=== PATIENT | female | born 1930 ===

== ENCOUNTER 2019-05-21 20:32 | Inpatient (IN) | payer MEDICARE, OTHER, MEDICAID ==
[~2019-05-21] VITALS: Ht 162.6 cm; Wt 93.3 kg
--- NOTE | 2019-05-21 20:40 | NUR ---
PT FENRY OSEI TRANSFER FROM [place] WHERE SHE WAS SEEN FOR ESOPHAGEAL DISORDER. PT WAS TRANSFERRED FOR HIGHER LEVEL OF CARE AND GI CONSULT AND POSSIBLE ONCOLOGIC CONSULT. UPON ARRIVAL TO [facility] ED, PT VSS. PER EMS, PT RECEIVED 2 MG IV ATIVAN PRIOR TO TRANSPORT. PT AWAKES TO PAINFUL STIMULI. PT AAO X O DUE TO SEDATION. PT PLACED ON O2 TO MAINTAIN SATURATION ABOVE 92%. 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 VSS AT THIS TIME. PT HAD INCONTINENT EPISODE OF URINE EN ROUTE. PT CHANGED INTO DRY GOWN AND CLOTHES UPON ARRIVAL. EKG DONE AT BS. CALL LIGHT WITHIN REACH. AWAITING PROVIDER AT THIS TIME.
--- NOTE | 2019-05-21 21:19 | NUR ---
DR. MENJIVAR AT BS AT THIS TIME.
[2019-05-21 21:54] LABS: BASOPHILS # (AUTO) 0.02 x10^3/uL (0-0.1); BASOPHILS % (AUTO) 0 % (0-1); EOSINOPHILS # (AUTO) 0.09 x10^3/uL (0-0.4); EOSINOPHILS % (AUTO) 1 % (1-7); LYMPHOCYTES # (AUTO) 1.03 x10^3/uL (1-3.4); LYMPHOCYTES % (AUTO) 15 % (22-44); MD NO; MEAN CORPUSCULAR HEMOGLOBIN 30.4 pg (27.0-34.8); MEAN CORPUSCULAR HGB CONC 32.4 g/dL (32.4-35.8); MEAN CORPUSCULAR VOLUME 93.8 fL (80-100); MEAN PLATELET VOLUME 8.6 fL (7.4-10.4); MONOCYTES # (AUTO) 0.42 x10^3/uL (0.2-0.8); MONOCYTES % (AUTO) 6 % (2-9); NEUTROPHILS # (AUTO) 5.38 x10^3/uL (1.8-6.8); NEUTROPHILS % (AUTO) 78 % (42-75); PLATELET COUNT 188 x10^3/uL (130-400); RED BLOOD COUNT 5.02 x10^6/uL (3.82-5.3); RED CELL DISTRIBUTION WIDTH 14.7 % (9.6-15.2)
[2019-05-21 22:04] LABS: ALANINE AMINOTRANSFERASE 18 U/L (12-78); ALBUMIN 3.6 g/dL (3.4-5.0); ANION GAP 6 mmol/L (5-15); CALCIUM 8.8 mg/dL (8.5-10.1); CHLORIDE 106 mmol/L (98-107); CREATININE 1.11 mg/dL (0.55-1.02)
[2019-05-21 22:08] LABS: BILIRUBIN,TOTAL 0.4 mg/dL (0.2-1.0); TOTAL PROTEIN 6.9 g/dL (6.4-8.2); TROPONIN I < 0.015 ng/mL (0.000-0.045)
[2019-05-21 22:18] LABS: ALKALINE PHOSPHATASE 67 U/L (45-117)
[2019-05-21] MEDS ORDERED: SODIUM CHLORIDE 0.9% 1,000 ML IV SCH (23:03)
[2019-05-21] MEDS ORDERED: POLYETHYLENE GLYCOL 17 GM PACKET PO PRN (23:30)
[2019-05-21] MEDS ORDERED: BISACODYL 10 MG SUPP PR PRN (23:30)
[2019-05-21] MEDS ORDERED: ACETAMINOPHEN 325 MG TABLET PO PRN (23:30)
[2019-05-21] MEDS ORDERED: hydrALAzine 20 MG/ML, 1ML IVPush PRN (23:30)
--- NOTE | 2019-05-21 23:34 | NUR ---
REPORT OF PT TO ABIGAIL BANERJEE. ALL QUESTIONS ANSWERED. PT TRANSFERRED TO FLOOR AT THIS TIME BY SHAREHOLDER.
[2019-05-21 23:49] VITALS: BP 139/81
[2019-05-22 00:52] VITALS: BP 139/81
[2019-05-22 01:08] VITALS: BP 127/76
[2019-05-22 05:14] LABS: BASOPHILS # (AUTO) 0.01 x10^3/uL (0-0.1); BASOPHILS % (AUTO) 0 % (0-1); EOSINOPHILS # (AUTO) 0.04 x10^3/uL (0-0.4); EOSINOPHILS % (AUTO) 1 % (1-7); LYMPHOCYTES # (AUTO) 1.56 x10^3/uL (1-3.4); LYMPHOCYTES % (AUTO) 28 % (22-44); MD NO; MEAN CORPUSCULAR HEMOGLOBIN 30.5 pg (27.0-34.8); MEAN CORPUSCULAR HGB CONC 32.5 g/dL (32.4-35.8); MEAN CORPUSCULAR VOLUME 93.9 fL (80-100); MEAN PLATELET VOLUME 9.2 fL (7.4-10.4); MONOCYTES # (AUTO) 0.41 x10^3/uL (0.2-0.8); MONOCYTES % (AUTO) 8 % (2-9); NEUTROPHILS # (AUTO) 3.49 x10^3/uL (1.8-6.8); NEUTROPHILS % (AUTO) 63 % (42-75); PLATELET COUNT 184 x10^3/uL (130-400); RED BLOOD COUNT 4.66 x10^6/uL (3.82-5.3); RED CELL DISTRIBUTION WIDTH 14.4 % (9.6-15.2)
[2019-05-22 05:24] LABS: CALCIUM 8.7 mg/dL (8.5-10.1); CHLORIDE 107 mmol/L (98-107)
[2019-05-22 05:29] LABS: ALANINE AMINOTRANSFERASE 16 U/L (12-78); ALBUMIN 3.1 g/dL (3.4-5.0); ALKALINE PHOSPHATASE 56 U/L (45-117); ANION GAP 7 mmol/L (5-15); BILIRUBIN,TOTAL 0.4 mg/dL (0.2-1.0); CREATININE 0.83 mg/dL (0.55-1.02); TOTAL PROTEIN 6.1 g/dL (6.4-8.2)
[2019-05-22] MEDS ORDERED: HEPARIN 5,000 UNITS/ML, 1ML SQ SCH (07:00)
[2019-05-22 07:23] VITALS: BP 145/75
[2019-05-22 13:24] VITALS: BP 140/79
[2019-05-22 18:49] VITALS: BP 142/78
[2019-05-22] MEDS: SODIUM CHLORIDE 0.9% 1,000 ML IV SCH (22:18)
[2019-05-22] MEDS: ACETAMINOPHEN 325 MG TABLET PO PRN (22:18)
[2019-05-23 00:56] VITALS: BP 137/72
[2019-05-23] MEDS ORDERED: ASPI-682 PO (02:05)
[2019-05-23] MEDS ORDERED: ALEN70TA3 PO (02:05)
[2019-05-23] MEDS ORDERED: CLON0.1T2 PO (02:08)
[2019-05-23] MEDS ORDERED: MULT1TAB9 PO (02:08)
[2019-05-23] MEDS ORDERED: CYCL5TAB PO (02:12)
[2019-05-23] MEDS ORDERED: FAMO-79 PO (02:12)
[2019-05-23] MEDS ORDERED: DOCU-131 PO (02:12)
[2019-05-23] MEDS ORDERED: FENT1PAT77 TP (02:15)
[2019-05-23] MEDS ORDERED: GABA-826 PO (02:17)
[2019-05-23] MEDS ORDERED: PARO10TA56 PO (02:19)
[2019-05-23] MEDS ORDERED: OXYC-302 PO (02:19)
[2019-05-23] MEDS ORDERED: TRAM50TA2 PO (02:21)
[2019-05-23] MEDS ORDERED: CHOL200059 PO (02:21)
[2019-05-23] MEDS ORDERED: ONDA4TAB7 PO (02:22)
[2019-05-23 07:10] VITALS: BP 105/80
[2019-05-23] MEDS ORDERED: PROPOFOL 10 MG/ML, 20ML ONE (07:53)
[2019-05-23] MEDS ORDERED: ONDANSETRON 2MG/ML, 2ML IV PRN (08:00)
[2019-05-23] MEDS ORDERED: LABETALOL 5MG/ML, 20ML IV PRN (08:00)
[2019-05-23] MEDS ORDERED: ACETAMINOPHEN 325 MG TABLET PO PRN (08:00)
[2019-05-23] MEDS ORDERED: hydrALAzine 20 MG/ML, 1ML IV PRN (08:00)
[2019-05-23] MEDS ORDERED: FENTANYL PF 100 MCG/2ML IV PRN (08:00)
[2019-05-23] MEDS: OMEPRAZOLE 20 MG CAPSULE.DR PO SCH (08:30)
[2019-05-23] MEDS ORDERED: hydrALAzine 20 MG/ML, 1ML ONE (08:44)
[2019-05-23] MEDS: ONDANSETRON 2MG/ML, 2ML IVPush PRN (09:14)
[2019-05-23] MEDS ORDERED: FENTANYL PF 100 MCG/2ML ONE (11:58)
[2019-05-23] MEDS ORDERED: NALOXONE 1 MG/ML, 2ML ONE (11:58)
[2019-05-23] MEDS ORDERED: MIDAZOLAM 1 MG/ML, 5ML ONE (11:58)
[2019-05-23] MEDS ORDERED: FLUMAZENIL 0.1 MG/1 ML, 5ML ONE (11:58)
[2019-05-23 13:20] VITALS: BP 126/75
[2019-05-23] MEDS: SUCRALFATE 1 GM/10 ML UDC PO SCH ×3 (15:09→19:19)
[2019-05-23] MEDS: ACETAMINOPHEN 325 MG TABLET PO PRN (15:09)
[2019-05-23] MEDS: SODIUM CHLORIDE 0.9% 1,000 ML IV SCH (18:33)
[2019-05-23 19:15] VITALS: BP 126/73
[2019-05-23] MEDS: PAROXETINE 10 MG TABLET PO SCH (19:58)
[2019-05-23] MEDS: GABAPENTIN 100 MG CAPSULE PO SCH (19:58)
[2019-05-23] MEDS: CYCLOBENZAPRINE 10 MG TABLET PO SCH (19:58)
[2019-05-23] MEDS: METHYL SALICYLATE/MENTHOL CRM 85GM TP PRN (22:10)
[2019-05-23] MEDS: KETOROLAC 30 MG/1 ML IVPush PRN (22:10)
[2019-05-24 00:37] VITALS: BP 116/65
[2019-05-24] MEDS: ONDANSETRON 2MG/ML, 2ML IVPush PRN (03:38)
[2019-05-24] MEDS: OMEPRAZOLE 20 MG CAPSULE.DR PO SCH (05:36)
[2019-05-24] MEDS: SUCRALFATE 1 GM/10 ML UDC PO SCH ×4 (07:44→20:07)
[2019-05-24] MEDS: HEPARIN 5,000 UNITS/ML, 1ML SQ SCH ×2 (07:45→16:03)
[2019-05-24] MEDS: SODIUM CHLORIDE 0.9% 1,000 ML IV SCH (07:46)
[2019-05-24 08:25] VITALS: BP 126/71
[2019-05-24 09:14] LABS: INTERNATIONAL NORMALIZED RATIO 1.02 (0.93-1.1); PROTHROMBIN TIME 10.7 Seconds (9.6-11.5)
[2019-05-24 13:40] VITALS: BP 101/66
[2019-05-24] MEDS: KETOROLAC 30 MG/1 ML IVPush PRN (16:02)
[2019-05-24 20:04] VITALS: BP 127/66
[2019-05-24] MEDS: CYCLOBENZAPRINE 10 MG TABLET PO SCH (20:07)
[2019-05-24] MEDS: GABAPENTIN 100 MG CAPSULE PO SCH (20:07)
[2019-05-24] MEDS: PAROXETINE 10 MG TABLET PO SCH (20:07)
[2019-05-24] MEDS: METHYL SALICYLATE/MENTHOL CRM 85GM TP PRN (20:08)
[2019-05-25 03:00] VITALS: BP 149/81
[2019-05-25] MEDS: HEPARIN 5,000 UNITS/ML, 1ML SQ SCH ×4 (03:21→22:05)
[2019-05-25] MEDS: OMEPRAZOLE 20 MG CAPSULE.DR PO SCH (06:12)
[2019-05-25 07:36] VITALS: BP 162/92
[2019-05-25] MEDS: SUCRALFATE 1 GM/10 ML UDC PO SCH ×4 (08:33→21:58)
[2019-05-25] MEDS: SODIUM CHLORIDE 0.9% 1,000 ML IV SCH (08:33)
[2019-05-25 13:11] VITALS: BP 147/70
[2019-05-25] MEDS ORDERED: NALOXONE 1 MG/ML, 2ML ONE (14:38)
[2019-05-25] MEDS ORDERED: MIDAZOLAM 1 MG/ML, 5ML ONE ×2 (14:38)
[2019-05-25] MEDS ORDERED: FENTANYL PF 100 MCG/2ML ONE (14:38)
[2019-05-25] MEDS ORDERED: FLUMAZENIL 0.1 MG/1 ML, 5ML ONE (14:38)
[2019-05-25 18:39] VITALS: BP 141/79
[2019-05-25] MEDS: GABAPENTIN 100 MG CAPSULE PO SCH (21:57)
[2019-05-25] MEDS: CYCLOBENZAPRINE 10 MG TABLET PO SCH (21:57)
[2019-05-25] MEDS: PAROXETINE 10 MG TABLET PO SCH (21:58)
[2019-05-25] MEDS: SENNA/DOCUSATE TABLET PO SCH (22:02)
[2019-05-26 00:14] VITALS: BP 152/84
[2019-05-26] MEDS: SODIUM CHLORIDE 0.9% 1,000 ML IV SCH ×2 (04:49→17:45)
[2019-05-26] MEDS: OMEPRAZOLE 20 MG CAPSULE.DR PO SCH (06:34)
[2019-05-26] MEDS: SUCRALFATE 1 GM/10 ML UDC PO SCH ×4 (06:34→20:37)
[2019-05-26 07:02] VITALS: BP 171/90
[2019-05-26] MEDS: HEPARIN 5,000 UNITS/ML, 1ML SQ SCH ×3 (07:38→23:26)
[2019-05-26] MEDS: LACTOBACILLUS CHEW TABLET PO SCH ×3 (07:38→20:37)
[2019-05-26] MEDS: CARVEDILOL 3.125 MG TABLET PO SCH ×2 (10:31→17:45)
[2019-05-26 11:12] VITALS: BP 150/77
[2019-05-26 13:35] VITALS: BP 117/73
[2019-05-26 18:54] VITALS: BP 132/75
[2019-05-26] MEDS: SENNA/DOCUSATE TABLET PO SCH (20:37)
[2019-05-26] MEDS: GABAPENTIN 100 MG CAPSULE PO SCH (20:37)
[2019-05-26] MEDS: CYCLOBENZAPRINE 10 MG TABLET PO SCH (20:37)
[2019-05-26] MEDS: PAROXETINE 10 MG TABLET PO SCH (20:37)
[2019-05-26] MEDS: KETOROLAC 30 MG/1 ML IVPush PRN (22:05)
[2019-05-27 02:00] VITALS: BP 140/70
[2019-05-27] MEDS: SODIUM CHLORIDE 0.9% 1,000 ML IV SCH ×2 (02:30→20:44)
[2019-05-27] MEDS: ACETAMINOPHEN 325 MG TABLET PO PRN (02:35)
[2019-05-27] MEDS: METHYL SALICYLATE/MENTHOL CRM 85GM TP PRN (02:35)
[2019-05-27] MEDS: SUCRALFATE 1 GM/10 ML UDC PO SCH ×4 (06:19→19:37)
[2019-05-27] MEDS: OMEPRAZOLE 20 MG CAPSULE.DR PO SCH (06:20)
[2019-05-27] MEDS: CARVEDILOL 3.125 MG TABLET PO SCH ×2 (06:25→16:34)
[2019-05-27 07:21] VITALS: BP 137/80
[2019-05-27] MEDS: LACTOBACILLUS CHEW TABLET PO SCH ×3 (08:07→19:37)
[2019-05-27] MEDS: HEPARIN 5,000 UNITS/ML, 1ML SQ SCH ×2 (08:07→16:30)
[2019-05-27 13:23] VITALS: BP 124/76
[2019-05-27 19:12] VITALS: BP 170/82
[2019-05-27] MEDS: CYCLOBENZAPRINE 10 MG TABLET PO SCH (19:37)
[2019-05-27] MEDS: PAROXETINE 10 MG TABLET PO SCH (19:37)
[2019-05-27] MEDS: SENNA/DOCUSATE TABLET PO SCH (19:37)
[2019-05-27] MEDS: GABAPENTIN 100 MG CAPSULE PO SCH (19:38)
[2019-05-27 19:43] VITALS: BP 160/84
[2019-05-28] MEDS: HEPARIN 5,000 UNITS/ML, 1ML SQ SCH ×3 (00:40→16:36)
[2019-05-28 00:52] VITALS: BP 160/82
[2019-05-28] MEDS: OMEPRAZOLE 20 MG CAPSULE.DR PO SCH (05:23)
[2019-05-28] MEDS: CARVEDILOL 3.125 MG TABLET PO SCH ×2 (05:23→18:12)
[2019-05-28 07:26] VITALS: BP 144/76
[2019-05-28] MEDS: SUCRALFATE 1 GM/10 ML UDC PO SCH ×4 (08:16→20:48)
[2019-05-28] MEDS: AMLODIPINE 2.5 MG TABLET PO SCH (08:17)
[2019-05-28] MEDS: LACTOBACILLUS CHEW TABLET PO SCH ×3 (08:17→20:48)
[2019-05-28] MEDS ORDERED: LISINOPRIL 10 MG TABLET PO SCH (09:00)
[2019-05-28 13:09] VITALS: BP 106/60
[2019-05-28] MEDS: SODIUM CHLORIDE 0.9% 1,000 ML IV SCH (15:43)
[2019-05-28 19:02] VITALS: BP 131/66
[2019-05-28] MEDS: GABAPENTIN 100 MG CAPSULE PO SCH (20:48)
[2019-05-28] MEDS: PAROXETINE 10 MG TABLET PO SCH (20:48)
[2019-05-28] MEDS: SENNA/DOCUSATE TABLET PO SCH (20:48)
[2019-05-28] MEDS: CYCLOBENZAPRINE 10 MG TABLET PO SCH (20:49)
[2019-05-29] MEDS: HEPARIN 5,000 UNITS/ML, 1ML SQ SCH ×3 (01:04→16:52)
[2019-05-29 03:06] VITALS: BP 131/69
[2019-05-29] MEDS: OMEPRAZOLE 20 MG CAPSULE.DR PO SCH (05:28)
[2019-05-29] MEDS: CARVEDILOL 3.125 MG TABLET PO SCH ×2 (05:28→16:52)
[2019-05-29 07:18] VITALS: BP 146/74
[2019-05-29] MEDS: SODIUM CHLORIDE 0.9% 1,000 ML IV SCH (07:54)
[2019-05-29] MEDS: LACTOBACILLUS CHEW TABLET PO SCH ×3 (07:54→19:59)
[2019-05-29] MEDS: SUCRALFATE 1 GM/10 ML UDC PO SCH ×4 (07:54→19:58)
[2019-05-29] MEDS: AMLODIPINE 2.5 MG TABLET PO SCH (07:54)
[2019-05-29] MEDS ORDERED: LISINOPRIL 5 MG TABLET PO SCH (09:00)
[2019-05-29] MEDS ORDERED: CARV3.1212 PO (09:24)
[2019-05-29] MEDS ORDERED: SUCR1ORA5 PO (09:24)
[2019-05-29] MEDS ORDERED: OMEP-110 PO (09:24)
[2019-05-29] MEDS ORDERED: AMLO2.5T5 PO (09:24)
[2019-05-29] MEDS ORDERED: LISI5TAB7 PO (09:24)
[2019-05-29] MEDS ORDERED: ACID1TAB7 PO (09:24)
[2019-05-29] MEDS: ACETAMINOPHEN 325 MG TABLET PO PRN (13:41)
[2019-05-29 15:00] VITALS: BP 129/77
[2019-05-29 19:46] VITALS: BP 138/80
[2019-05-29] MEDS: METHYL SALICYLATE/MENTHOL CRM 85GM TP PRN (19:58)
[2019-05-29] MEDS: CYCLOBENZAPRINE 10 MG TABLET PO SCH (19:58)
[2019-05-29] MEDS: SENNA/DOCUSATE TABLET PO SCH (19:58)
[2019-05-29] MEDS: PAROXETINE 10 MG TABLET PO SCH (19:59)
[2019-05-29] MEDS: GABAPENTIN 100 MG CAPSULE PO SCH (19:59)
[2019-05-30] MEDS: HEPARIN 5,000 UNITS/ML, 1ML SQ SCH (00:34)
[2019-05-30 00:56] VITALS: BP 147/74
[2019-05-30] MEDS: SODIUM CHLORIDE 0.9% 1,000 ML IV SCH (01:03)
[2019-05-30 06:36] VITALS: BP 147/70
[2019-05-30] MEDS: OMEPRAZOLE 20 MG CAPSULE.DR PO SCH (07:02)
[2019-05-30] MEDS: CARVEDILOL 3.125 MG TABLET PO SCH (07:02)
[2019-05-30] MEDS: SUCRALFATE 1 GM/10 ML UDC PO SCH (07:02)
== END 2019-05-30 08:25 | DRG 987 ==
LOC: ED 22:22 → EDIP 22:45 → 3NW 23:31
PROVIDERS: ADMIT Internal Medicine; ATTEND Internal Medicine
PROC: 0PB13ZX Excision of 1 to 2 Ribs, Percutaneous Approach, Diagnostic (ICD-10-PCS; 2019-05-23)
PROC: 0D758ZZ Dilation of Esophagus, Via Natural or Artificial Opening Endoscopic (ICD-10-PCS; principal; 2019-05-23 08:00)
PROC: 0BBC3ZX Excision of Right Upper Lung Lobe, Percutaneous Approach, Diagnostic (ICD-10-PCS; 2019-05-25)
DX: K22.8 Other specified diseases of esophagus (principal); J96.01 Acute respiratory failure with hypoxia; K21.0 Gastro-esophageal reflux disease with esophagitis; M89.8X8 Other specified disorders of bone, other site; I12.9 Hypertensive chronic kidney disease with stage 1 through stage 4 chronic kidney disease, or unspecified chronic kidney disease; R13.14 Dysphagia, pharyngoesophageal phase; K44.9 Diaphragmatic hernia without obstruction or gangrene; K29.70 Gastritis, unspecified, without bleeding; N18.9 Chronic kidney disease, unspecified; I25.10 Atherosclerotic heart disease of native coronary artery without angina pectoris; G89.29 Other chronic pain; G25.81 Restless legs syndrome; F03.90 Unspecified dementia, unspecified severity, without behavioral disturbance, psychotic disturbance, mood disturbance, and anxiety; K57.90 Diverticulosis of intestine, part unspecified, without perforation or abscess without bleeding; E66.9 Obesity, unspecified; Z66 Do not resuscitate; M81.0 Age-related osteoporosis without current pathological fracture; K59.00 Constipation, unspecified; Z68.35 Body mass index [BMI] 35.0-35.9, adult; Z88.5 Allergy status to narcotic agent; Z90.710 Acquired absence of both cervix and uterus; Z80.0 Family history of malignant neoplasm of digestive organs; Z79.899 Other long term (current) drug therapy; Z80.3 Family history of malignant neoplasm of breast; Z91.018 Allergy to other foods; Z90.49 Acquired absence of other specified parts of digestive tract; Z83.49 Family history of other endocrine, nutritional and metabolic diseases
CPT/HCPCS: 20220; 32405; 36415; 71045; 71250; 77012; 80053; 83690; 84484; 85025; 85610; 88305; 88333; 93005; 99156; 99157; 99285; G0378; J1644; J1885; J2250; J2405; J2704; J3010; J0360; J2310; J7030